=== PATIENT | male | born 1955 | race American Indian/Alaskan Native ===

== ENCOUNTER 2016-08-30 07:23 | Outpatient (CLI) | payer BC ==
--- NOTE | 2016-08-30 09:30 | XRay Report ---
RIGHT HIP, 2 views: History: Right hip pain, radiculopathy. Moderate osteoarthritic changes are identified at the right hip. No evidence for fracture, dislocation or osteonecrosis. The soft tissues are unremarkable. IMPRESSION: Osteoarthritic changes. No acute process.
--- NOTE | 2016-08-30 10:15 | Magnetic Resonance Report ---
MRI LUMBAR SPINE WITHOUT CONTRAST HISTORY: Back pain, radiculopathy. TECHNIQUE: axial T1, T2. sagittal T1,T2, STIR. COMPARISON: No relevant comparison. FINDINGS: The conus terminates at L1. No signal abnormality or mass. The cauda equina is within normal limits. No central canal stenosis. Normal height and alignment of the lumbar vertebra. The facet joints are in appropriate relationship. Normal bone marrow signal. No acute fracture or suspicious bone lesion. The paraspinal soft tissues are unremarkable. There is mild disc desiccation and narrowing at L2-3, L3-4 and L4-5. L1-2: No abnormality. L2-3: No abnormality. L3-4: A mild posterior bulging disc is identified. Mild facet arthropathy and hypertrophy of the ligamentum flavum. A focal left paracentral annular tear is detected. There is a small disc protrusion at this level without mass effect. There is focal enhancement in this area as well on the postcontrast images consistent with granulation tissue. No central canal stenosis or neural foraminal narrowing. L4-5: A mild posterior bulging disc is identified. Mild facet arthropathy and moderate hypertrophy of ligamentum flavum. No central canal stenosis or neural foraminal narrowing. L5-S1: No abnormality. IMPRESSION: Mild lumbar spondylosis. A focal left paracentral annular tear is identified at L3-4 with a very small associated disc protrusion. No mass effect on nerve roots, central canal stenosis or neural foraminal narrowing. There is focal enhancement of the annular tear consistent with granulation tissue/healing annular tear.
== END 2016-08-30 07:24 | disposition home or self-care (01) ==
LOC: MRI 07:23
PROVIDERS: ATTEND Internal Medicine
DX: M47.896 Other spondylosis, lumbar region (principal); M51.16 Intervertebral disc disorders with radiculopathy, lumbar region; M12.88 Other specific arthropathies, not elsewhere classified, other specified site; M24.28 Disorder of ligament, vertebrae
CPT/HCPCS: 36415; 72158; 73502; 82565; 84520; A9577

== ENCOUNTER 2017-04-05 07:40 | Emergency (ER) | payer BC ==
[2017-04-05 08:14] LABS: Basophils % (Auto) 0.7 % (0.0-1.8); Eosinophils % (Auto) 1.8 % (0.0-4.3); Hematocrit 42.6 % (35.5-45.6); Hemoglobin 14.4 gm/dl (11.8-15.2); Mean Corpuscular HGB Conc 34 % (32-34); Mean Corpuscular Hemoglobin 31 pg (28-32); Mean Corpuscular Volume 91 fl (84-94); Platelet Count 282 K/mm3 (140-440); Red Blood Count 4.66 M/mm3 (3.65-5.03); Red Cell Distribution Width 14.5 % (13.2-15.2); White Blood Count 7.4 K/mm3 (4.5-11.0)
[2017-04-05 08:30] LABS: Anion Gap 16 mmol/L; BUN/Creatinine Ratio 11; Blood Urea Nitrogen 14 mg/dL (9-20); Calcium 8.6 mg/dL (8.4-10.2); Carbon Dioxide 25 mmol/L (22-30); Chloride 104.8 mmol/L (98-107); Glucose 84 mg/dL (75-100); Potassium 3.2 mmol/L (3.6-5.0); Sodium 143 mmol/L (137-145)
[2017-04-05] MEDS ORDERED: TORADOL IM ONE (10:18)
--- NOTE | 2017-04-05 10:18 | Emergency Department Report ---
ED Chest Pain HPI - General Chief Complaint: Chest Pain Stated Complaint: CHEST PAIN FOR 4 DAYS Time Seen by Provider: 04/05/17 10:02 Source: patient Mode of arrival: Ambulatory Limitations: No Limitations - History of Present Illness Initial Comments: This is a 62-year-old male, the patient is previously unknown to this provider. His primary care doctor is Dr. Louie Mike. The patient presents to the ER with a complaint of right-sided chest wall pain for 4 days. The pain is constant. It increases with palpation and range of motion, and it decreases with rest. Patient reports recent heavy lifting. There is no nausea, vomiting, diaphoresis. There is no change in exercise tolerance, the pain does not radiate to the back, arms or neck. There is no posterior leg pain or leg swelling, no recent trips greater than 4 hours, and no recent hospital admissions. Patient reports that when he is laying supine, the pain increases, and therefore makes it difficult to breathe. MD Complaint: chest pain -: Gradual Pain Location: right chest Pain Radiation: none Severity: mild Severity scale (0 -10): 10 Quality: aching Consistency: constant Improves With: rest Worsens With: movement Context: other (as per history of present illness) Treatments Prior to Arrival: none Aspirin use within the Past 7 Days: (1) Yes - Related Data Home Medications Medication Instructions Recorded Confirmed Last Taken Cascade-3 Fatty Acids [Fish Oil] 300 mg PO DAILY 12/06/13 05/24/14 05/23/14 08:00 Vit D3-Vit K/[place]/Hops 1 each PO DAILY 12/06/13 05/24/14 05/23/14 08:00 [Ostera Tablet] Aspirin [Aspirin BABY CHEW TAB] 162 mg PO Q48H 05/24/14 05/24/14 05/23/14 08:00 Previous Rx's Medication Instructions Recorded Last Taken Type HYDROcodone/APAP 10-325 [[place] 1 each PO Q8HR PRN #20 tablet 04/19/14 Unknown Rx 10-325 mg TAB] Lisinopril/Hydrochlorothiazide 1 each PO QAM #30 tablet 04/19/14 05/23/14 08:00 Rx [Zestoretic 10-12.5 mg] Amoxicillin [Trimox CAP] 500 mg PO Q8H #60 capsule 05/24/14 Unknown Rx Fluticasone [Flonase] 1 spray NS QDAY #1 bottle 05/24/14 Unknown Rx HYDROcodone/APAP 5-325 [[place] 1 each PO Q6HR PRN #14 tablet 05/24/14 Unknown Rx 5/325] Prednisone [Prednisone 10 mg 10 mg PO .TAPER #1 tab.ds.pk 05/24/14 Unknown Rx (6-Day Pack, 21 Tabs)] Acetaminophen [Tylenol Arthritis] 650 mg PO Q6HR PRN #30 tablet.er 04/05/17 Unknown Rx Aspirin [Aspirin BABY CHEW TAB] 81 mg PO QDAY #30 tab.chew 04/05/17 Unknown Rx Allergies Allergy/AdvReac Type Severity Reaction Status Date / Time No Known Allergies Allergy Verified 05/24/14 08:02 Heart Score - HEART Score History: Slightly suspicious EKG: Normal Age: 45-65 Risk factors: 1-2 risk factors Troponin: < normal limit HEART Score: 2 - Critical Actions Critical Actions: 0-3 pts:0.9-1.7%risk of adverse cardiac event.Candidate for discharge ED Review of Systems ROS: Stated complaint: CHEST PAIN FOR 4 DAYS Other details as noted in HPI Constitutional: denies: fever, weakness Eyes: denies: vision change ENT: denies: epistaxis Respiratory: denies: cough Cardiovascular: chest pain Gastrointestinal: denies: abdominal pain Genitourinary: denies: dysuria Musculoskeletal: denies: back pain Skin: denies: lesions Neurological: denies: headache Psychiatric: denies: anxiety ED Past Medical Hx - Past Medical History Previous Medical History?: Yes Hx Kidney Stones: Yes Additional medical history: left groin hernia - Surgical History Past Surgical History?: Yes Additional Surgical History: hernia - Social History Smoking Status: Current Some Day Smoker Substance Use Type: None - Medications Home Medications: Home Medications Medication Instructions Recorded Confirmed Last Taken Type Cascade-3 Fatty Acids [Fish Oil] 300 mg PO DAILY 12/06/13 05/24/14 05/23/14 08:00 History Vit D3-Vit K/[place] 1 each PO DAILY 12/06/13 05/24/14 05/23/14 08:00 History [Ostera Tablet] HYDROcodone/APAP 10-325 [[place] 1 each PO Q8HR PRN #20 tablet 04/19/14 05/24/14 Unknown Rx 10-325 mg TAB] Lisinopril/Hydrochlorothiazide 1 each PO QAM #30 tablet 04/19/14 05/24/14 08:00 Rx [Zestoretic 10-12.5 mg] Amoxicillin [Trimox CAP] 500 mg PO Q8H #60 capsule 05/24/14 Unknown Rx Aspirin [Aspirin BABY CHEW TAB] 162 mg PO Q48H 05/24/14 05/24/14 05/23/14 08:00 History Fluticasone [Flonase] 1 spray NS QDAY #1 bottle 05/24/14 Unknown Rx HYDROcodone/APAP 5-325 [[place] 1 each PO Q6HR PRN #14 tablet 05/24/14 Unknown Rx 5/325] Prednisone [Prednisone 10 mg 10 mg PO .TAPER #1 tab.ds.pk 05/24/14 Unknown Rx (6-Day Pack, 21 Tabs)] Acetaminophen [Tylenol Arthritis] 650 mg PO Q6HR PRN #30 tablet.er 04/05/17 Unknown Rx Aspirin [Aspirin BABY CHEW TAB] 81 mg PO QDAY #30 tab.chew 04/05/17 Unknown Rx ED Physical Exam - General Limitations: No Limitations General appearance: alert, in no apparent distress - Head Head exam: Present: atraumatic, normocephalic - Eye Eye exam: Present: normal appearance, EOMI. Absent: nystagmus - ENT ENT exam: Present: normal exam, normal orophraynx, mucous membranes moist, normal external ear exam - Neck Neck exam: Present: normal inspection, full ROM. Absent: tenderness, meningismus - Respiratory Respiratory exam: Present: normal lung sounds bilaterally, chest wall tenderness , other (there is reproducible right-sided chest wall tenderness). Absent: respiratory distress, wheezes, rales, rhonchi, stridor - Cardiovascular Cardiovascular Exam: Present: regular rate, normal rhythm, normal heart sounds. Absent: bradycardia, tachycardia, irregular rhythm, systolic murmur, diastolic murmur, rubs, gallop - GI/Abdominal GI/Abdominal exam: Present: soft, normal bowel sounds. Absent: distended, tenderness, guarding, rebound, rigid, pulsatile mass - Rectal Rectal exam: Present: deferred - Extremities Exam Extremities exam: Present: normal inspection, full ROM, normal capillary refill. Absent: pedal edema, joint swelling, calf tenderness - Back Exam Back exam: Present: normal inspection, full ROM. Absent: tenderness, CVA tenderness (R), CVA tenderness (L), muscle spasm, paraspinal tenderness, vertebral tenderness - Neurological Exam Neurological exam: Present: alert, oriented X3, normal gait, other (Extraocular movements intact. Tongue midline. No facial droop. Facial sensation intact to light touch in the V1, V2, V3 distribution bilaterally. 5 and 5 strength in 4 extremities.. Sensation is intact to light touch in 4 extremities.). Absent : motor sensory deficit - Psychiatric Psychiatric exam: Present: normal affect, normal mood - Skin Skin exam: Present: warm, dry, intact, normal color. Absent: rash ED Course Vital Signs 04/05/17 04/05/17 04/05/17 07:44 09:00 09:08 Temperature 97.4 F L Pulse Rate 91 H 80 75 Respiratory 16 13 17 Rate Blood Pressure 123/78 Blood Pressure 126/78 [Right] O2 Sat by Pulse 98 98 Oximetry 04/05/17 04/05/17 04/05/17 09:14 09:30 10:00 Temperature Pulse Rate 75 76 76 Respiratory 14 13 Rate Blood Pressure 115/75 120/77 Blood Pressure [Right] O2 Sat by Pulse 95 95 Oximetry 04/05/17 04/05/17 10:30 11:00 Temperature Pulse Rate 78 71 Respiratory 16 16 Rate Blood Pressure 132/89 Blood Pressure 137/94 [Right] O2 Sat by Pulse 98 99 Oximetry LIONEL score - Lionel Score Age > 65: (0) No Aspirin use within the Past 7 Days: (1) Yes 3 or more CAD Risk Factors: (0) No 2 or more Angina events in past 24 hrs: (0) No Known CAD with more than 50% Stenosis: (0) No Elevated Cardiac Markers: (0) No ST Deviation Greater than 0.5mm: (0) No LIONEL Score: 1 ED Medical Decision Making - Lab Data Result diagrams: 04/05/17 08:04 04/05/17 08:04 Vital Signs 04/05/17 04/05/17 04/05/17 07:44 09:00 09:08 Temperature 97.4 F L Pulse Rate 91 H 80 75 Respiratory 16 13 17 Rate Blood Pressure 123/78 Blood Pressure 126/78 [Right] O2 Sat by Pulse 98 98 Oximetry 04/05/17 04/05/1717 09:14 09:30 10:00 Temperature Pulse Rate 75 76 76 Respiratory 14 13 Rate Blood Pressure 115/75 120/77 Blood Pressure [Right] O2 Sat by Pulse 95 95 Oximetry 04/05/17 10:30 Temperature Pulse Rate 78 Respiratory 16 Rate Blood Pressure 132/89 Blood Pressure [Right] O2 Sat by Pulse 98 Oximetry Lab Results 04/05/17 04/05/17 04/05/17 Range/Units 08:04 08:04 10:45 WBC 7.4 (4.5-11.0) K/mm3 RBC 4.66 (3.65-5.03) M/mm3 Hgb 14.4 (11.8-15.2) gm/dl Hct 42.6 (35.5-45.6) % MCV 91 (84-94) fl MCH 31 (28-32) pg MCHC 34 (32-34) % RDW 14.5 (13.2-15.2) % Plt Count 282 (140-440) K/mm3 Lymph % (Auto) 23.5 (13.4-35.0) % [place] % (Auto) 5.0 (0.0-7.3) % Eos % (Auto) 1.8 (0.0-4.3) % Baso % (Auto) 0.7 (0.0-1.8) % Lymph # 1.7 (1.2-5.4) K/mm3 [place] # 0.4 (0.0-0.8) K/mm3 Eos # 0.1 (0.0-0.4) K/mm3 Baso # 0.1 (0.0-0.1) K/mm3 Seg Neutrophils % 69.0 (40.0-70.0) % Seg Neutrophils # 5.1 (1.8-7.7) K/mm3 Sodium 143 (137-145) mmol/L Potassium 3.2 L (3.6-5.0) mmol/L Chloride 104.8 (98-107) mmol/L Carbon Dioxide 25 (22-30) mmol/L Anion Gap 16 mmol/L BUN 14 (9-20) mg/dL Creatinine 1.3 (0.8-1.5) mg/dL Estimated GFR > 60 ml/min BUN/Creatinine Ratio 11 % Glucose 84 (75-100) mg/dL Calcium 8.6 (8.4-10.2) mg/dL Troponin T < 0.010 < 0.010 (0.00-0.029) ng/mL - EKG Data -: EKG Interpreted by Me EKG shows normal: sinus rhythm Rate: normal - EKG Data Interpretation: unchanged when compared t 04/05/17 11:22 EKG #1 demonstrates normal sinus, 85 bpm, normal intervals, normal axis, not morphologically consistent with STEMI, appears unchanged when compared to prior EKG. EKG #2 is unchanged from prior. - Radiology Data Radiology results: report reviewed, image reviewed X-ray of the chest is negative for acute disease - Medical Decision Making Differential diagnosis: Acute coronary syndrome, costochondritis, pericarditis, pneumonia Assessment and plan: 62-year-old male, with reproducible right-sided chest wall pain which is constant for 4 days. EKG morphologically within normal limits 2 , and unchanged from prior. X-ray of the chest negative for serious pathology, pulses equal in the upper/lower extremities, doubt aortic disease at this time. No pulmonary embolus or DVT risk factors, low risk by well's criteria, low risk by LIONEL score, and low risk by heart score. Patient felt much improved after pain medication, and during multiple reassessments, patient is laying supine very comfortable, with no respiratory distress or hypoxia. A bedside ultrasound demonstrated good coordinated ventricular activity and a left and right side, in no large pericardial effusion. Extensive discussion had with the patient, patient understands that he is at low risk for major adverse cardiac event, and indicates he would like to follow up with an outpatient assemblyman or woman. He is reliable, and understands that he needs to closely follow-up which he states he will, and he will be therefore discharged at this time. Return precautions are reviewed. Critical care attestation.: If time is entered above; I have spent that time in minutes in the direct care of this critically ill patient, excluding procedure time. ED Disposition Clinical Impression: Chest wall pain Disposition: - TO HOME OR SELFCARE Is pt being admited?: No Does the pt Need Aspirin: No Condition: Good Instructions: Chest Pain (ED), Costochondritis (ED) Additional Instructions: Rest and avoid heavy lifting. Avoid strenuous physical activity. Take medications as needed/directed. Follow up with a assemblyman or woman within the next 3 -4 days for outpatient cardiac stress test. Return to the ER readily with new pain, worsened pain, migration of pain, fevers, chills, lethargy, irritability, projectile vomiting, change in mental status, inability to tolerate liquid feeds , loss of consciousness, vomiting blood, defecating blood. Prescriptions: Acetaminophen [Tylenol Arthritis] 650 mg PO Q6HR PRN #30 tablet.er PRN Reason: Pain Aspirin [Aspirin BABY CHEW TAB] 81 mg PO QDAY #30 tab.chew Referrals: LOUIE MIKE MD [Primary Care Provider] - 3-5 Days [facility] [Provider Group] - 3-5 Days [facility] [Provider Group] - 3-5 Days
--- NOTE | 2017-04-05 10:53 | XRay Report ---
CHEST 2 VIEWS INDICATION: Right-sided reproducible chest wall pain. COMPARISON: 11/15/2007 CXR. FINDINGS: PA and lateral chest radiographs demonstrate normal cardiomediastinal silhouette. Clear lungs. Intact bones. CONCLUSION: No acute disease in the chest. Thank you for the opportunity to participate in this patient's care.
[2017-04-05] MEDS ORDERED: K-DUR PO ONE (11:20)
[2017-04-05 11:36] VITALS: BP 137/94
== END 2017-04-05 11:37 | disposition home or self-care (01) ==
LOC: ED 07:40
DX: R07.89 Other chest pain (principal); F17.200 Nicotine dependence, unspecified, uncomplicated
CPT/HCPCS: 36415; 71020; 80048; 84484; 85025; 93005; 93010; 96372; 99284; J1885

== ENCOUNTER 2017-08-11 10:15 | Emergency (ER) | payer BC ==
[2017-08-11] MEDS ORDERED: ASPIRIN PO ONE (10:57)
[2017-08-11] MEDS ORDERED: FLUSH HEPARIN IV ONE (10:58)
[2017-08-11 11:18] LABS: Basophils # (Auto) 0.1 K/mm3 (0.0-0.1); Basophils % (Auto) 1.1 % (0.0-1.8); Eosinophils # (Auto) 0.1 K/mm3 (0.0-0.4); Eosinophils % (Auto) 1.9 % (0.0-4.3); Hematocrit 45.4 % (35.5-45.6); Hemoglobin 15.2 gm/dl (11.8-15.2); Lymphocytes # (Auto) 1.4 K/mm3 (1.2-5.4); Mean Corpuscular HGB Conc 33 % (32-34); Mean Corpuscular Hemoglobin 31 pg (28-32); Mean Corpuscular Volume 92 fl (84-94); Monocytes # (Auto) 0.3 K/mm3 (0.0-0.8); Monocytes % (Auto) 5.5 % (0.0-7.3); Platelet Count 343 K/mm3 (140-440); Red Blood Count 4.94 M/mm3 (3.65-5.03); Red Cell Distribution Width 14.8 % (13.2-15.2)
[2017-08-11 11:50] VITALS: BP 134/77
[2017-08-11 11:56] LABS: BUN/Creatinine Ratio 10; Blood Urea Nitrogen 10 mg/dL (9-20); Calcium 8.8 mg/dL (8.4-10.2); Hemolysis Index 13
[2017-08-11 12:30] LABS: Color,Urine Brown (Yellow)
[2017-08-11 12:31] LABS: Bilirubin,Urine Negative (Negative); Blood,Urine Large (Negative)
[2017-08-11 12:32] LABS: Urobilinogen,Urine < 2.0 mg/dL (<2.0)
[2017-08-11 12:33] LABS: RBC,Urine > 182.0 /HPF (0.0-6.0)
--- NOTE | 2017-08-11 13:52 | Emergency Department Report ---
HPI - General Chief Complaint: Chest Pain Time Seen by Provider: 08/11/17 13:22 - HPI HPI: Room 26 The patient is a 62-year-old male presenting with chief complaint of chest pain. The patient states for the past 3 days he has had hematuria. The patient states for the past month she has had right-sided chest pain that was stabbing and constant in nature. The patient does admit to slight shortness of breath but denies nausea/vomiting or diaphoresis. The patient states the pain is worse with lying down. Patient gets his pain is scored 10/10. The patient admitted to cocaine use 3 days ago. Patient states his last stress test occurred in 2000 but he has never had a cardiac catheterization Location: Chest Duration: [See above] Quality: Stabbing Severity: Moderate Modifying factors: [see above] Context: [see above] Mode of transportation: Unknown ED Past Medical Hx - Past Medical History Hx Kidney Stones: Yes Additional medical history: left groin hernia - Surgical History Additional Surgical History: hernia - Family History Family history: no significant - Social History Smoking Status: Current Some Day Smoker Substance Use Type: Cocaine - Medications Home Medications: Home Medications Medication Instructions Recorded Confirmed Last Taken Type [place]-3 Fatty Acids [Fish Oil] 300 mg PO DAILY 12/06/13 05/24/14 05/23/14 08:00 History Vit D3-Vit K/Berberine/Hops 1 each PO DAILY 12/06/13 05/24/14 05/23/14 08:00 History [Ostera Tablet] HYDROcodone/APAP 10-325 [[place] 1 each PO Q8HR PRN #20 tablet 04/19/14 05/24/14 Unknown Rx 10-325 mg TAB] Lisinopril/Hydrochlorothiazide 1 each PO QAM #30 tablet 04/19/14 05/24/14 08:00 Rx [Zestoretic 10-12.5 mg] Amoxicillin [Trimox CAP] 500 mg PO Q8H #60 capsule 05/24/14 Unknown Rx Aspirin [Aspirin BABY CHEW TAB] 162 mg PO Q48H 05/24/14 05/24/14 05/23/14 08:00 History Fluticasone [Flonase] 1 spray NS QDAY #1 bottle 05/24/14 Unknown Rx HYDROcodone/APAP 5-325 [[place] 1 each PO Q6HR PRN #14 tablet 05/24/14 Unknown Rx 5/325] Prednisone [Prednisone 10 mg 10 mg PO .TAPER #1 tab.ds.pk 05/24/14 Unknown Rx (6-Day Pack, 21 Tabs)] Acetaminophen [Tylenol Arthritis] 650 mg PO Q6HR PRN #30 tablet.er 04/05/17 Unknown Rx Aspirin [Aspirin BABY CHEW TAB] 81 mg PO QDAY #30 tab.chew 04/05/17 Unknown Rx ED Review of Systems ROS: Stated complaint: UPPER ABD PAIN Other details as noted in HPI Constitutional: denies: diaphoresis Respiratory: shortness of breath Cardiovascular: chest pain Gastrointestinal: denies: nausea, vomiting Genitourinary: hematuria Physical Exam - Physical Exam Vital Signs: Vital Signs 08/11/17 08/11/17 08/11/17 10:51 11:48 11:52 Temperature 98.0 F 97.9 F Pulse Rate 74 67 Respiratory 16 13 13 Rate Blood Pressure 133/92 Blood Pressure 134/77 [Left] O2 Sat by Pulse 100 100 99 Oximetry Physical Exam: GENERAL: The patient is well-developed well-nourished male lying on stretcher not appearing to be in acute distress. HEENT: Normocephalic. Atraumatic. Extraocular motions are intact. Patient has moist mucous membranes. NECK: Supple. Trachea midline CHEST/LUNGS: Clear to auscultation. There is no respiratory distress noted. HEART/CARDIOVASCULAR: Regular. There is no tachycardia. There is no gallop rub or murmur. ABDOMEN: Abdomen is soft, nontender. Patient has normal bowel sounds. There is no abdominal distention. SKIN: There is no rash. There is no edema. There is no diaphoresis. NEURO: The patient is awake, alert, and oriented. The patient is cooperative. The patient has normal speech MUSCULOSKELETAL: There is no evidence of acute injury. Heart score = 3 History Slightly suspicious= 0 Moderately suspicious= +1 Highly suspicious= +2 EKG Normal= 0 Nonspecific repolarization disturbance= +[address] depression= +2 Risk factors None= 0 1-2= +1 =/>3 = +2 Initial troponin Normal = 0 1-3 times normal= +1 > 3 times normal equals +2 ED Course Vital Signs 08/11/17 08/11/17 08/11/17 10:51 11:48 11:52 Temperature 98.0 F 97.9 F Pulse Rate 74 67 Respiratory 16 13 13 Rate Blood Pressure 133/92 Blood Pressure 134/77 [Left] O2 Sat by Pulse 100 100 99 Oximetry ED Medical Decision Making - Lab Data Result diagrams: 08/11/17 11:02 08/11/17 11:02 Laboratory Tests 08/11/17 08/11/17 08/11/17 11:02 11:02 11:16 WBC 5.3 RBC 4.94 Hgb 15.2 Hct 45.4 MCV 92 MCH 31 MCHC 33 RDW 14.8 Plt Count 343 Lymph % (Auto) 27.0 [place] % (Auto) 5.5 Eos % (Auto) 1.9 Baso % (Auto) 1.1 Lymph # 1.4 [place] # 0.3 Eos # 0.1 Baso # 0.1 Seg Neutrophils % 64.5 Seg Neutrophils # 3.4 Sodium 143 Potassium 3.6 Chloride 103.0 Carbon Dioxide 26 Anion Gap 18 BUN 10 Creatinine 1.0 Estimated GFR > 60 BUN/Creatinine Ratio 10 Glucose 86 Calcium 8.8 Troponin T < 0.010 Urine Color Brown Urine Turbidity Cloudy Urine pH 5.0 Ur Specific [place] 1.035 H Urine Protein 100 mg/dl Urine Glucose (UA) Negative Urine Ketones Negative Urine Blood Large A Urine Nitrite Negative Urine Bilirubin Negative Urine Urobilinogen < 2.0 Ur Leukocyte Esterase Negative Urine WBC (Auto) 5.0 Urine RBC (Auto) > 182.0 - EKG Data -: EKG Interpreted by Me EKG shows normal: sinus rhythm Rate: normal - EKG Data When compared to previous EKG there are: previous EKG unavailable Interpretation: other (no ischemic changes seen) - Radiology Data Radiology results: image reviewed (chest x-ray) interpreted by me: Chest x-ray-no focal infiltrates, no pneumothorax - Medical Decision Making I discussed with patient at length my concern for his chest pain especially in the setting of cocaine use and history of tobacco use. Patient verbalized understanding that should he leave the hospital AGAINST MEDICAL ADVICE he may suffer from increased morbidity and/or mortality. 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 ED Disposition Clinical Impression: Chest pain, Hematuria Disposition: [id number] LEFT AGAINST MED ADVICE Is pt being admited?: No Does the pt Need Aspirin: Yes Condition: Undetermined Instructions: Chest Pain (ED) Forms: AMA Form Time of Disposition: 13:59 (patient leaving AGAINST MEDICAL ADVICE)
[2017-08-11] MEDS ORDERED: ASPIRIN ONE (13:57)
--- NOTE | 2017-08-11 14:50 | XRay Report ---
CHEST ONE VIEW INDICATION: Chest pain. COMPARISON: 04/05/2017. FINDINGS: Portable, single, frontal chest radiograph demonstrates normal cardiomediastinal silhouette. Stable lungs. Unremarkable bones. Extrinsic EKG leads. CONCLUSION: No acute disease in the chest. Thank you for the opportunity to participate in this patient's care.
== END 2017-08-11 14:00 | disposition left against medical advice (07) ==
LOC: ED 10:15
DX: R07.89 Other chest pain (principal); R31.9 Hematuria, unspecified; F17.200 Nicotine dependence, unspecified, uncomplicated; Z79.82 Long term (current) use of aspirin
CPT/HCPCS: 36415; 71045; 80048; 81001; 84484; 85025; 93005; 93010; 99284; J1642

== ENCOUNTER 2017-12-21 15:24 | Emergency (ER) | payer BC ==
[2017-12-21 15:57] VITALS: BP 124/82
== END 2017-12-21 20:48 | disposition left against medical advice (07) ==
LOC: ED 15:24
DX: R07.9 Chest pain, unspecified (principal); Z53.21 Procedure and treatment not carried out due to patient leaving prior to being seen by health care provider
CPT/HCPCS: 93005; 93010